=== PATIENT | male | born 1965 | race Asian ===

== ENCOUNTER 2017-05-30 10:25 | Emergency (ER) | payer OTHER, BC ==
[~2017-05-30] VITALS: Ht 172.7 cm; Wt 127.5 kg
[2017-05-30 12:13] VITALS: BP 130/78; TEMP 98
== END 2017-05-30 12:14 | disposition home or self-care (01) ==
LOC: ED 10:25
DX: Z04.8 Encounter for examination and observation for other specified reasons (principal)
CPT/HCPCS: 99281

== ENCOUNTER 2019-05-31 22:36 | Outpatient (CLI) | payer OTHER | END 2019-05-31 22:53 | disposition short-term general hospital (02) | LOC: AMB 22:36 | DX: M54.5 Low back pain (principal); M54.2 Cervicalgia; R53.83 Other fatigue; R41.82 Altered mental status, unspecified; V89.2XXA Person injured in unspecified motor-vehicle accident, traffic, initial encounter; Y92.413 State road as the place of occurrence of the external cause; Y93.9 Activity, unspecified | CPT/HCPCS: A0425; A0427 ==

== ENCOUNTER 2019-07-17 12:50 | Outpatient (CLI) | payer OTHER ==
[2019-07-17 13:18] LABS: PLATELET COUNT 269 K/uL (142-355)
[2019-07-17 13:38] LABS: POTASSIUM 3.6 mmol/L (3.6-5.2)
== END 2019-07-17 20:14 | disposition home or self-care (01) ==
LOC: LABW 12:50
PROVIDERS: Physician Assistant
DX: E66.01 Morbid (severe) obesity due to excess calories (principal); R53.83 Other fatigue; N40.0 Benign prostatic hyperplasia without lower urinary tract symptoms
CPT/HCPCS: 36415; 80053; 80061; 83036; 83540; 83735; 84154; 84402; 84403; 84443; 85027

== ENCOUNTER 2019-08-20 07:36 | Day surgery (SDC) | payer OTHER ==
[2019-08-20 08:23] LABS: PLATELET COUNT 285 K/uL (142-355)
[2019-08-20 08:31] LABS: POTASSIUM 3.5 mmol/L (3.6-5.2)
== END 2019-08-20 11:52 | disposition home or self-care (01) ==
LOC: OR 07:36
PROVIDERS: Student in an Organized Health Care Education/Training Program
PROC: 0DBN8ZZ Excision of Sigmoid Colon, Via Natural or Artificial Opening Endoscopic (ICD-10-PCS; principal; 2019-08-20)
PROC: 0DBL8ZZ Excision of Transverse Colon, Via Natural or Artificial Opening Endoscopic (ICD-10-PCS; 2019-08-20)
DX: K63.5 Polyp of colon (principal); D12.3 Benign neoplasm of transverse colon; K64.8 Other hemorrhoids; K57.30 Diverticulosis of large intestine without perforation or abscess without bleeding; Z12.11 Encounter for screening for malignant neoplasm of colon
CPT/HCPCS: 80053; 85027; J2001; J2250; J2405; J2704; J2765

== ENCOUNTER 2020-02-22 12:21 | Emergency (ER) | payer OTHER ==
[~2020-02-22] VITALS: Ht 170.2 cm; Wt 147.4 kg
[2020-02-22 14:32] LABS: PLATELET COUNT 221 K/uL (142-355)
[2020-02-22 14:59] LABS: POTASSIUM 3.5 mmol/L (3.6-5.2); SODIUM 139 mmol/L (136-145)
[2020-02-22 19:16] VITALS: BP 140/87; TEMP 97.3
== END 2020-02-22 19:23 | disposition home or self-care (01) ==
LOC: ED 12:21
PROVIDERS: Family Medicine
DX: B34.9 Viral infection, unspecified (principal); J44.9 Chronic obstructive pulmonary disease, unspecified; R05 Cough; Z03.818 Encounter for observation for suspected exposure to other biological agents ruled out
CPT/HCPCS: 36415; 36600; 80053; 82550; 82805; 84484; 85027; 85379; 87502; 87635; 87651; 93005; 99285; Q9963; U0002

== ENCOUNTER 2020-04-30 12:18 | Emergency (ER) | payer OTHER ==
[~2020-04-30] VITALS: Ht 182.9 cm; Wt 142.4 kg
[2020-04-30 12:38] VITALS: TEMP 98.1
[2020-04-30 13:29] LABS: PLATELET COUNT 285 K/uL (142-355)
[2020-04-30 13:39] LABS: POTASSIUM 3.8 mmol/L (3.6-5.2)
[2020-04-30 17:25] VITALS: BP 126/80
== END 2020-04-30 17:25 | disposition home or self-care (01) ==
LOC: ED 12:18
PROVIDERS: Emergency Medicine
DX: K92.2 Gastrointestinal hemorrhage, unspecified (principal); Z79.01 Long term (current) use of anticoagulants
CPT/HCPCS: 80053; 85027; 85610; 85730; 99283; Q9963

== ENCOUNTER 2020-06-26 14:25 | Emergency (ER) | payer OTHER ==
[2020-06-26 19:40] LABS: POTASSIUM 4.1 mmol/L (3.6-5.2); SODIUM 137 mmol/L (136-145)
[2020-06-26 19:59] LABS: PARTIAL THROMBOPLASTIN TIME 28.2 SECONDS (24.5-33.6); PLATELET COUNT 302 K/uL (142-355)
== END 2020-06-26 16:08 | disposition home or self-care (01) ==
LOC: ED 14:25
PROVIDERS: Hospitalist
DX: J06.9 Acute upper respiratory infection, unspecified (principal); J44.0 Chronic obstructive pulmonary disease with (acute) lower respiratory infection; J44.1 Chronic obstructive pulmonary disease with (acute) exacerbation; R06.09 Other forms of dyspnea; R00.0 Tachycardia, unspecified
CPT/HCPCS: 80053; 81000; 82550; 82553; 83605; 83880; 84484; 85027; 85610; 85730; 96360; 96365; 96374; 99284

== ENCOUNTER 2021-08-25 10:56 | Emergency (ER) | payer OTHER ==
[~2021-08-25] VITALS: Ht 182.9 cm; Wt 142.4 kg
[2021-08-25 12:13] LABS: PLATELET COUNT 375 K/uL (142-355)
[2021-08-25 15:13] VITALS: BP 133/76; TEMP 98
== END 2021-08-25 15:16 | disposition home or self-care (01) ==
LOC: ED 10:56
PROVIDERS: Emergency Medicine Emergency Medical Services
DX: S00.83XA Contusion of other part of head, initial encounter (principal); W19.XXXA Unspecified fall, initial encounter; Y92.89 Other specified places as the place of occurrence of the external cause
CPT/HCPCS: 80048; 85027; 90471; 90715; 93005; 99283

== ENCOUNTER 2023-02-16 15:32 | Emergency (ER) | payer BC ==
[~2023-02-16] VITALS: Ht 182.9 cm; Wt 136.1 kg
[2023-02-16 15:32] VITALS: TEMP 98
[2023-02-16 16:11] LABS: PLATELET COUNT 346 K/uL (142-355)
[2023-02-16 17:05] VITALS: BP 124/58
== END 2023-02-16 17:05 | disposition home or self-care (01) ==
LOC: ED 15:32
PROVIDERS: Internal Medicine
DX: E66.01 Morbid (severe) obesity due to excess calories (principal); D50.9 Iron deficiency anemia, unspecified
CPT/HCPCS: 80053; 85027; 99283